=== PATIENT | female | born 1995 | race Hispanic/Latino ===

== ENCOUNTER 2018-11-22 02:28 | Emergency (ER) | payer OTHER ==
[2018-11-22] MEDS ORDERED: Acetaminophen 500 MG TAB ONE (03:37)
== END 2018-11-22 03:57 | disposition short-term general hospital (02) ==
LOC: MADERS 02:28
DX: O26.893 Other specified pregnancy related conditions, third trimester (principal); R10.9 Unspecified abdominal pain; M54.9 Dorsalgia, unspecified; Z3A.27 27 weeks gestation of pregnancy
CPT/HCPCS: 99284

== ENCOUNTER 2019-03-28 11:46 | Emergency (ER) | payer OTHER ==
[2019-03-28] MEDS ORDERED: Diazepam 5 MG TAB ONE (12:06)
[2019-03-28] MEDS ORDERED: Donnatal Elixir 16.2 MG/5 ML UDCUP ONE (12:07)
[2019-03-28] MEDS ORDERED: Mag-Al Plus 1200 MG/1200 MG/120 MG/30 ML UDCUP ONE (12:07)
[2019-03-28] MEDS ORDERED: Lidocaine Viscous Sol 2% 15 ml UD Cup ONE (12:07)
[2019-03-28] MEDS ORDERED: Prochlorperazine 10 MG/2 ML VIAL ONE (12:31)
[2019-03-28 13:55] LABS: Pregnancy Test - Urine (BHCG) Negative (Negative); Pregu Control Background? CLEAR/WHITE (CLR/WHITE); Pregu Control Bar Appear? YES (CONTROL BAR); Specific Gravity 1.029 (1.002-1.036)
== END 2019-03-28 15:00 | disposition home or self-care (01) ==
LOC: MADERS 11:46
DX: R11.2 Nausea with vomiting, unspecified (principal)
CPT/HCPCS: 81025; 96372; 99284; J0780

== ENCOUNTER 2019-04-20 09:01 | Outpatient (CLI) | payer OTHER ==
--- NOTE | 2019-04-20 09:52 | ULT ---
ULTRASOUND GALLBLADDER RIGHT UPPER QUADRANT: HISTORY: Right upper quadrant pain. COMPARISON: None. FINDINGS: Real-time, romero scale, and color evaluation of the right upper quadrant of the abdomen was performed. Visualized portions of the aorta, IVC, and pancreas are unremarkable. Common bile duct is normal m easuring 2 mm. The hepatic echotexture is normal. The gallbladder appears to be somewhat contracted and full of calculi. No pericholecystic fluid. The right kidney measures 11.2 x 3.4 x 4.4 cm without mass, hydronephrosis, or abnormal calcification s. IMPRESSION: Mildly contracted gallbladder with diffuse cholelithiasis. Symptomatic cholelithiasis is a possibili ty. No significant pericholecystic fluid or dilatation of the gallbladder. POS: [facility]
== END 2019-04-20 09:02 | disposition home or self-care (01) ==
LOC: MADULT 09:01
PROVIDERS: ATTEND Family Medicine
DX: R10.11 Right upper quadrant pain (principal); K82.0 Obstruction of gallbladder; K80.20 Calculus of gallbladder without cholecystitis without obstruction
CPT/HCPCS: 76705

== ENCOUNTER 2019-05-02 05:29 | Emergency (ER) | payer MEDICAID, SELFPAY ==
[2019-05-02] MEDS ORDERED: Morphine 4 MG/ML VIAL ONE (06:21)
[2019-05-02] MEDS ORDERED: Ondansetron PF 4 MG/2 ML Vial ONE (06:21)
[2019-05-02] MEDS ORDERED: Sodium Chloride 0.9% 1,000 ML ONE ×2 (06:21→07:24)
[2019-05-02 06:34] LABS: BHCG - Serum Negative (NEGATIVE); Pregs Control Background? CLEAR/WHITE (CLR/WHITE); Pregs Control Bar Appear? YES (CONTROL BAR)
[2019-05-02 06:37] LABS: #Basophils 0.1 thou/uL (0.0-0.2); #Eosinphils 0.1 thou/uL (0.0-0.7); #Lymphocytes 2.2 thou/uL (1.20-3.40); #Monocytes 0.9 thou/uL (0.11-0.59); #Neutrophils 14.3 thou/uL (1.40-6.50); %Basophils 0.4 % (0.0-1.0); %Eosinophils 0.3 % (0.0-10.0); %Lymphocytes 12.4 % (21.0-51.0); %Monocytes 4.8 % (0.0-10.0); %Neutrophils 82.1 % (42.0-75.0); Hemoglobin 12.1 g/dL (12.0-16.0); Mean Corpuscular Hemoglobin 24.5 pg (27.0-31.0); Mean Corpuscular Volume 81.8 fL (78.0-98.0); Mean Platelet Volume 9.8 fL (7.4-10.4); Platelet Count 280 thou/uL (130-400); RBC Distribution Width 15.6 % (11.5-14.5); Red Blood Cell (RBC) Count 4.94 mill/uL (4.20-5.40); White Blood Cell (WBC) Count 17.5 thou/uL (4.8-10.8)
[2019-05-02 06:38] LABS: Hypochromia SLIGHT = 6-15 cells (100X) (0-5/hpf); MDiff Complete? YES; Platelet Morphology Comment Appears Adequate
[2019-05-02 06:42] LABS: ALT (SGPT) 18 U/L (8-55); AST (SGOT) 20 U/L (5-34); Alkaline Phosphatase 133 U/L (40-110); Anion Gap 17 mmol/L (10-20); BUN (Urea Nitrogen) 7 mg/dL (7.0-18.7); Bilirubin, Total 0.4 mg/dL (0.2-1.2); Calc. Creatinine Clearance 0 mL/min (70-130); Carbon Dioxide 23 mmol/L (22-29); Chloride 105 mmol/L (98-107); Estimated GFR-MDRD Greater than 90; Globulin 3.8 g/dL (2.4-3.5); Glucose 114 mg/dL (70-105); Lipase 39 U/L (8-78); Potassium 3.2 mmol/L (3.5-5.1); Protein, Total 8.8 g/dL (6.0-8.3); Sodium 142 mmol/L (136-145)
[2019-05-02] MEDS ORDERED: Piperacillin/Tazobactam 3.375 GM VIAL ONE (07:24)
[2019-05-02] MEDS ORDERED: Sodium Chloride 0.9% 100 ML ONE (07:24)
[2019-05-02] MEDS ORDERED: Dextrose 5 %-0.45 % NaCl 1,000 ML ONE (08:11)
== END 2019-05-02 08:25 | disposition short-term general hospital (02) ==
LOC: MADERS 05:29
DX: K81.9 Cholecystitis, unspecified (principal)
CPT/HCPCS: 80053; 83690; 84703; 85025; 96361; 96365; 96375; J2270; J2405; J2543; J3490; J7042; J7050

== ENCOUNTER 2022-02-19 13:28 | Emergency (ER) | payer MEDICAID, SELFPAY ==
[2022-02-19 14:54] LABS: #Basophils 0.1 thou/uL (0.0-0.2); #Eosinphils 0.1 thou/uL (0.0-0.7); #Lymphocytes 2.3 thou/uL (1.20-3.40); #Monocytes 0.8 thou/uL (0.11-0.59); #Neutrophils 6.7 thou/uL (1.40-6.50); %Eosinophils 0.9 % (0.0-10.0); %Lymphocytes 23.4 % (21.0-51.0); %Monocytes 7.5 % (0.0-10.0); %Neutrophils 67.2 % (42.0-75.0); Hemoglobin 12.6 g/dL (12.0-16.0); Mean Corpuscular HGB CONC 32.9 g/dL (32.0-36.0); Mean Corpuscular Hemoglobin 28.3 pg (27.0-31.0); Mean Corpuscular Volume 86.1 fl (78.0-98.0); Mean Platelet Volume 9.5 fL (7.4-10.4); Platelet Count 272 thou/uL (130-400); RBC Distribution Width 11.7 % (11.5-14.5); Red Blood Cell (RBC) Count 4.45 mill/uL (4.20-5.40); White Blood Cell (WBC) Count 9.9 thou/uL (4.8-10.8)
[2022-02-19 14:56] LABS: Bilirubin Negative (Negative); Blood, Urine Negative (Negative); Glucose, Urine (Dipstick) Negative (Negative); Ketone, Urine Negative (Negative); Leukocyte Trace (Negative); Nitrite Negative (Negative); Protein, Urine (Dipstick) Trace mg/dL (Neg-Trace); Specific Gravity, Urine 1.015 (1.005-1.030); pH, Urine 8.5 (5.0-9.0)
[2022-02-19 15:17] LABS: Bacteria/HPF 1+ HPF (None Seen); Clarity Hazy (Clear); RBC/HPF 0-3 HPF (0-3); Squamous Epithelial 0-3 HPF (0-3)
[2022-02-19 16:11] LABS: ALT (SGPT) 29 U/L (8-55); AST (SGOT) 20 U/L (5-34); Alkaline Phosphatase 83 U/L (40-110); Anion Gap 11 mmol/L (10-20); BUN (Urea Nitrogen) 6 mg/dL (7.0-18.7); Bilirubin, Total 0.5 mg/dL (0.2-1.2); Calc. Creatinine Clearance 0 mL/min (70-130); Calcium 9.2 mg/dL (7.8-10.44); Carbon Dioxide 25 mmol/L (22-29); Chloride 105 mmol/L (98-107); Estimated GFR 127; Globulin 3.7 g/dL (2.4-3.5); Glucose 84 mg/dL (70-105); Potassium 3.7 mmol/L (3.5-5.1); Protein, Total 7.7 g/dL (6.0-8.3); Sodium 137 mmol/L (136-145)
== END 2022-02-19 16:55 | disposition short-term general hospital (02) ==
LOC: MADERS 13:28
DX: O20.0 Threatened abortion (principal); Z3A.08 8 weeks gestation of pregnancy
CPT/HCPCS: 36415; 80053; 81003; 81015; 84702; 85025; 86900; 86901; 87077; 87086; 99284